=== PATIENT | male | born 1940 | race Caucasian/White ===

== ENCOUNTER 2016-12-16 10:15 | Outpatient (CLI) | payer OTHER ==
--- NOTE | 2016-12-16 16:37 | DIAGNOSTIC IMAGING REPORT ---
REFERRING PHYSICIAN/PROVIDER: Alexis Acosta Jr, MD CONSULTING ROOF MECHANIC: Alexis Acosta Jr MD INDICATION: MURMMER Procedure: A two-dimensional transthoracic echocardiogram with color flow and Doppler was performed. The study quality was technically adequate. The patient was in normal sinus rhythm during the exam. Left Ventricle: The left ventricle is normal in size. There is mild- moderate concentric left ventricular hypertrophy. Left ventricular systolic function is normal without focal wall motion abnormalities. The ejection fraction is estimated to be 65-70%. Assessment of diastolic parameters indicates a relaxation abnormality of the left ventricle, consistent with normal filling pressures. Right Ventricle: The right ventricle is normal in size and function. Atria: Both atria are normal in size. Mitral Valve: The mitral valve is normal in structure and function. There is mild to moderate mitral annular calcification. There is trace mitral regurgitation. Aortic Valve: The aortic valve is trileaflet. The aortic valve is severely calcified. There is moderate to severe aortic stenosis. The peak aortic velocity is 3.5 m/sec. The aortic valve mean gradient is 29 mmHg. The calculated aortic valve area is 0.7 cm2. There is mild aortic regurgitation. Tricuspid Valve: There is a trace or physiologic amount of tricuspid regurgitation. Pulmonary artery pressures cannot be estimated because of the lack of a measurable TR jet velocity. Pulmonic Valve: The pulmonic valve is normal in structure and function. There is a trace or physiologic amount of pulmonic regurgitation. There is no other significant valvular heart disease. Great Vessels: The aortic root is normal size. The IVC is of normal diameter and collapses greater than 50% with a sniff. This suggests a low right atrial pressure of 3 mm Hg. IMPRESSION: There is mild-moderate concentric left ventricular hypertrophy. Left ventricular systolic function is normal without focal wall motion abnormalities. The ejection fraction is estimated to be 65-70%. Assessment of diastolic parameters indicates a relaxation abnormality of the left ventricle, consistent with normal filling pressures. The right ventricle is normal in size and function. Pulmonary artery pressures cannot be estimated because of the lack of a measurable TR jet velocity. Both atria are normal in size. The aortic valve is trileaflet. The aortic valve is severely calcified. There is moderate to severe aortic stenosis. The peak aortic velocity is 3.5 m/sec. The calculated aortic valve area is 0.7 cm2. There is mild aortic regurgitation. There is no other significant valvular heart disease. The aortic root is normal size.
== END 2016-12-16 23:00 ==
LOC: US SRH 10:15
DX: R01.1 Cardiac murmur, unspecified (principal)